=== PATIENT | female | born 1935 | race Caucasian/White ===

== ENCOUNTER 2016-06-30 08:33 | Emergency (ER) | payer MEDICARE, BC ==
[~2016-06-30] VITALS: Ht 154.9 cm; Wt 40.8 kg
[~2016-06-30 08:33] MED LIST: ASPI81TA2 PO; CARV3.122 PO; FAMO-63 PO; FLUO10CA7 PO; FURO-68 PO; FURO-69 PO; FURO20TA3 PO; GABA300C8 PO; LEVO25TA4 PO; LEVO500T8 PO; MIDO5TAB PO; SIMV10TA3 PO; TORS20TA2 PO
--- NOTE | 2016-06-30 08:41 | PHYS DOC ---
Past Medical History Past Medical History: Cancer, CHF, Endometriosis, High Cholesterol, Hypothyroid Additional Past Medical Histor: "cancer of the blood", hx chemo in remission Past Surgical History: Cholecystectomy, Hysterectomy Additional Past Surgical Histo: stephenie cath Rt chest Alcohol Use: None Drug Use: None Adult General Chief Complaint Chief Complaint: MULTIPLE TRAUMA/FALL HPI HPI Patient is a 81 year old female who presents with fall. According to the patient and her daughter and grandson she has issues with orthostatic hypotension and has been telling her she needs to wait before she stands up and starts walking. This morning she stood up out of bed and then fell backwards hitting her left arm on the rail and her thoracic back in addition to her head and neck. She presents with a 7 x 7 skin tear of her left upper arm next to her AV fistula. She is in a c-collar complaining about mild headache and neck pain down to her T4 region. I do not appreciate any ecchymosis or other abnormalities of her back. She is not complaining about any other pain other than her upper back and left arm. She states her last tetanus shot was within last 5 years. Review of Systems Review of Systems Constitutional: Denies fever or chills [] Eyes: Denies change in visual acuity, redness, or eye pain [] HENT: Denies nasal congestion or sore throat [] Respiratory: Denies cough or shortness of breath [] Cardiovascular: No additional information not addressed in HPI [] GI: Denies abdominal pain, nausea, vomiting, bloody stools or diarrhea [] : Denies dysuria or hematuria [] Musculoskeletal: Positive for neck and thoracic back pain [] Integument: Denies rash or skin lesions, positive for skin tear in the left upper arm [] Neurologic: Denies headache, focal weakness or sensory changes [] Endocrine: Denies polyuria or polydipsia [] Allergies Allergies Allergies Coded Allergies Type Severity Reaction Last Updated Verified No Known Drug Allergies 11/24/15 No Physical Exam Physical Exam Constitutional: Well developed, well nourished, no acute distress, non-toxic appearance. [] HENT: Normocephalic, atraumatic, bilateral external ears normal, oropharynx moist, no oral exudates, nose normal. [] Eyes: PERRLA, EOMI, conjunctiva normal, no discharge. [] Neck: Normal range of motion, no tenderness, supple, no stridor. [] Cardiovascular:Heart rate regular rhythm, no murmur [] Lungs & Thorax: Bilateral breath sounds clear to auscultation [] Abdomen: Bowel sounds normal, soft, no tenderness, no masses, no pulsatile masses. [] Skin: 7 by 7 cm skin tear of the left upper arm. [] Back: Tender to palpation throughout the cervical and upper thoracic back without any step-offs noted, no CVA tenderness. [] Extremities: No tenderness, no cyanosis, no clubbing, ROM intact, no edema. [] Neurologic: Alert and oriented X 3, normal motor function, normal sensory function, no focal deficits noted. [] Psychologic: Affect normal, judgement normal, mood normal. [] Current Patient Data Vital Signs Vital Signs Date Time Temp Pulse Resp B/P Pulse Ox O2 Delivery O2 Flow Rate FiO2 06/30/16 09:01 97.4 86 18 141/62 98 Room Air 97.4 EKG EKG [] Radiology/Procedures Radiology/Procedures [facility] [address] [place] [address] IMAGING REPORT Signed PATIENT: CHARANJIT MORRIS ACCOUNT: [id number] : 1935 LOCATION: ER AGE: 81 SEX: F EXAM STATUS: PRE ER ORD. PHYSICIAN: YORDAN HENSLEY MD REASON: fall with neck pain PROCEDURE: HEAD AND CERVICAL SPINE WO Indication fall. Closed head injury. Head and neck pain. The head and cervical spine were evaluated. Images of the cervical spine were reformatted in the coronal and sagittal planes. The head is compared to an examination 11/24/2015. CT head: Findings. Some slight soft tissue swelling over the left occipital bone is noted. An acute calvarial finding is not seen. Small polyp or retention cyst is noted in the right maxillary sinus. No subdural or epidural hematoma is seen. The ventricles and sulci are within normal limits given the patient's age. No mass or midline shift is seen. There is no hemorrhage. An acute finding is not apparent. A significant change compared to the previous exam is not seen CT cervical spine: Findings. The lung apices are clear. A significant soft tissue finding in the neck is not seen. Review of axial images demonstrates spondylitic changes. No acute finding is not seen. The reformatted images in the coronal and sagittal planes demonstrate similar findings. 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 No acute finding is seen. No acute finding seen in the head. PQRS Compliance Statement: One or more of the following individualized dose reduction techniques were utilized for this examination: 1. Automated exposure control 2. Adjustment of the mA and/or kV according to patient size 3. Use of iterative reconstruction technique DICTATED and SIGNED BY: BOB MENDEZ MD DATE: 06/30/16952 CC: YORDAN HENSLEY MD; UNKNOWN PCP NAME ~ [address] [id number] IMAGING REPORT Signed PATIENT: CHARANJIT MORRIS ACCOUNT: [id number] : 1935 LOCATION: ER AGE: 81 SEX: F EXAM STATUS: PRE ER ORD. PHYSICIAN: YORDAN HENSLEY MD REASON: fall today with left arm pain, large laceration on forearm PROCEDURE: HUMERUS LEFT Indication fall. Pain. AP and lateral views of the left humerus were obtained. No acute bony finding is seen. There are some modest degenerative changes about the elbow. IMPRESSION: No acute bony finding is seen DICTATED and SIGNED BY: BOB MENDEZ MD DATE: 06/30/16940 CC: YORDAN HENSLEY MD; UNKNOWN PCP NAME ~ [address] [id number] IMAGING REPORT Signed PATIENT: CHARANJIT MORRIS ACCOUNT: [id number] : 1935 LOCATION: ER AGE: 81 SEX: F EXAM STATUS: PRE ER ORD. PHYSICIAN: YORDAN HENSLEY MD REASON: fall with neck pain PROCEDURE: THORACIC SPINE WO CONTRAST Indication fall, pain. Axial images through the thoracic spine were obtained and reformatted in the coronal and sagittal planes. An acute parenchymal infiltrate or dominant soft tissue mass is not seen in the visualized lung crockett. There is a small left pleural effusion. Postoperative changes are seen in the left upper abdomen. An acute finding in the thoracic spine is not seen. A significant compression deformity in the thoracic spine is not seen on the reformatted images in no acute finding is apparent. Scoliosis is noted. IMPRESSION: No acute finding seen in the thoracic spine PQRS Compliance Statement: One or more of the following individualized dose reduction techniques were utilized for this examination: 1. Automated exposure control 2. Adjustment of the mA and/or kV according to patient size 3. Use of iterative reconstruction technique DICTATED and SIGNED BY: BOB MENDEZ MD DATE: 06/30/16 1003 CC: YORDAN HENSLEY MD; UNKNOWN PCP NAME ~ Impressions: Closed head injury Neck strain Left arm pain Laceration of her left arm Course & Med Decision Making Course & Med Decision Making Pertinent Labs and Imaging studies reviewed. (See chart for details) This is likely an orthostatic event. She's had numerous ones of these. Skin tear of the left forearm was repaired with Steri-Strips. Tetanus up-to-date. CT scan of her head neck and thoracic spine do not show any abnormalities. X-ray of the left humerus also nonacute. Patient being discharged home with return precautions. Patient, daughter and grandsons agreeable plan. Return precautions given. Dragon Disclaimer Dragon Disclaimer This electronic medical record was generated, in whole or in part, using a voice recognition dictation system. Departure Departure Impression: Primary Impression: Closed head injury Disposition: HOME, SELF-CARE Condition: GOOD Referrals: UNKNOWN PCP NAME (PCP) Patient Instructions: Back Pain, Adult Additional Instructions: The CAT scan of the head neck and back and x-rays of her arm did not show anything broken. You are being discharged home. You will be sore for the next several days. If you starte having worsening pain please return back to emergency department or follow-up with her primary care physician. YORDAN HENSLEY MD Jun 30, 2016 08:41
--- NOTE | 2016-06-30 09:47 | RAD ---
Indication fall. Pain. AP and lateral views of the left humerus were obtained. No acute bony finding is seen. There are some modest degenerative changes about the elbow. IMPRESSION: No acute bony finding is seen
--- NOTE | 2016-06-30 10:05 | RAD ---
Indication fall. Closed head injury. Head and neck pain. The head and cervical spine were evaluated. Images of the cervical spine were reformatted in the coronal and sagittal planes. The head is compared to an examination 11/24/2015. CT head: Findings. Some slight soft tissue swelling over the left occipital bone is noted. An acute calvarial finding is not seen. Small polyp or retention cyst is noted in the right maxillary sinus. No subdural or epidural hematoma is seen. The ventricles and sulci are within normal limits given the patient's age. No mass or midline shift is seen. There is no hemorrhage. An acute finding is not apparent. A significant change compared to the previous exam is not seen CT cervical spine: Findings. The lung apices are clear. A significant soft tissue finding in the neck is not seen. Review of axial images demonstrates spondylitic changes. No acute finding is not seen. The reformatted images in the coronal and sagittal planes demonstrate similar findings. 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 No acute finding is seen. No acute finding seen in the head. PQRS Compliance Statement: One or more of the following individualized dose reduction techniques were utilized for this examination: 1. Automated exposure control 2. Adjustment of the mA and/or kV according to patient size 3. Use of iterative reconstruction technique
--- NOTE | 2016-06-30 10:11 | RAD ---
Indication fall, pain. Axial images through the thoracic spine were obtained and reformatted in the coronal and sagittal planes. An acute parenchymal infiltrate or dominant soft tissue mass is not seen in the visualized lung crockett. There is a small left pleural effusion. Postoperative changes are seen in the left upper abdomen. An acute finding in the thoracic spine is not seen. A significant compression deformity in the thoracic spine is not seen on the reformatted images in no acute finding is apparent. Scoliosis is noted. IMPRESSION: No acute finding seen in the thoracic spine PQRS Compliance Statement: One or more of the following individualized dose reduction techniques were utilized for this examination: 1. Automated exposure control 2. Adjustment of the mA and/or kV according to patient size 3. Use of iterative reconstruction technique
[2016-06-30 10:41] VITALS: BP 142/61
== END 2016-06-30 10:45 | disposition home or self-care (01) ==
LOC: ER 08:33
DX: S51.812A Laceration without foreign body of left forearm, initial encounter (principal); S16.1XXA Strain of muscle, fascia and tendon at neck level, initial encounter; S09.90XA Unspecified injury of head, initial encounter; M54.6 Pain in thoracic spine; E03.9 Hypothyroidism, unspecified; E78.00 Pure hypercholesterolemia, unspecified; I50.9 Heart failure, unspecified; Z90.710 Acquired absence of both cervix and uterus; Z90.49 Acquired absence of other specified parts of digestive tract; W01.198A Fall on same level from slipping, tripping and stumbling with subsequent striking against other object, initial encounter; Y93.89 Activity, other specified; Y92.89 Other specified places as the place of occurrence of the external cause; Y99.8 Other external cause status
CPT/HCPCS: 70450; 72125; 72128; 73060; 99284-25

== ENCOUNTER 2016-10-02 18:21 | Inpatient (IN) | payer MEDICARE, BC ==
--- NOTE | 2016-10-02 19:22 | PHYS DOC ---
Past Medical History Past Medical History: Cancer, CHF, Endometriosis, High Cholesterol, Hypothyroid Additional Past Medical Histor: "cancer of the blood", hx chemo in remission Past Surgical History: Cholecystectomy, Hysterectomy Additional Past Surgical Histo: stephenie cath Rt chest, L upper arm HD fistula Alcohol Use: None Drug Use: None Adult General Chief Complaint Chief Complaint: SHORTNESS OF BREATH HPI HPI Patient is a 81 year old female who presents with complaint of left-sided chest pain and lower extremity pain and numbness. Patient states that her symptoms started while at dialysis. Patient states that she started getting sharp left-sided chest pain which has currently resolved. Patient states she also started getting numbness in her left upper extremity as well as her bilateral lower extremity is. Patient states that her left upper extremity has improved however she is still experiencing significant pain and numbness in her bilateral lower extremities. Patient has history of end-stage renal disease, congestive heart failure, and history of cancer currently in remission. Patient denies any fevers. Patient does admit to shortness of breath. The patient was sent to the emergency department from dialysis due to her symptoms. Review of Systems Review of Systems Constitutional: Denies fever or chills [] Eyes: Denies change in visual acuity, redness, or eye pain [] HENT: Denies nasal congestion or sore throat [] Respiratory: Shortness of breath, denies cough [] Cardiovascular: Chest pain, currently resolved [] GI: Denies abdominal pain, nausea, vomiting, bloody stools or diarrhea [] : Denies dysuria or hematuria [] Musculoskeletal: Denies back pain or joint pain [] Integument: Denies rash or skin lesions [] Neurologic: Numbness and pain in left upper extremity and bilateral lower extremities [] Current Medications Current Medications Current Medications Medications (Trade) Dose Ordered Sig/Sarah Start Time Stop Time Status Last Admin Dose Admin Acetaminophen/ Hydrocodone Bitart (Lortab 5/325) 1 tab PRN Q4HRS PRN 10/02/16 20:45 Ondansetron HCl (Zofran) 4 mg PRN Q8HRS PRN 10/02/16 20:45 10/03/16 20:44 Allergies Allergies Allergies Coded Allergies Type Severity Reaction Last Updated Verified No Known Drug Allergies 11/24/15 No Physical Exam Physical Exam Constitutional: Alert, afebrile, appears in chronically poor health. [] HENT: Normocephalic, atraumatic, bilateral external ears normal, oropharynx moist, no oral exudates, nose normal. [] Eyes: PERRLA, EOMI, conjunctiva normal, no discharge. [] Neck: Normal range of motion, no tenderness, supple, no stridor. [] Cardiovascular:Heart rate regular rhythm, no murmur [] Lungs & Thorax: Bilateral breath sounds clear to auscultation [] Abdomen: Bowel sounds normal, soft, no tenderness, no masses, no pulsatile masses. [] Skin: Warm, dry, no erythema, no rash. [] Back: No tenderness, no CVA tenderness. [] Extremities: No tenderness, no cyanosis, no clubbing, ROM intact, no edema. [] Neurologic: Alert and oriented X 3, normal motor function, normal sensory function, no focal deficits noted. [] Current Patient Data Vital Signs Vital Signs Date Time Temp Pulse Resp B/P Pulse Ox O2 Delivery O2 Flow Rate FiO2 10/02/16 18:21 97.7 74 32 132/66 98 Room Air 97.7 Lab Values Laboratory Tests Test 10/02/16 19:24 10/02/16 20:08 White Blood Count 7.9x10^3/uL (4.0-11.0) Red Blood Count 4.80x10^6/uL (3.50-5.40) Hemoglobin 14.6g/dL (12.0-15.5) Hematocrit 45.0% (36.0-47.0) Mean Corpuscular Volume 94fL (79-100) Mean Corpuscular Hemoglobin 31pg (25-35) Mean Corpuscular Hemoglobin Concent 33g/dL (31-37) Red Cell Distribution Width 15.3% (11.5-14.5) H Platelet Count 191x10^3/uL (140-400) Neutrophils (%) (Auto) 70% (31-73) Lymphocytes (%) (Auto) 19% (24-48) L Monocytes (%) (Auto) 9% (0-9) Eosinophils (%) (Auto) 1% (0-3) Basophils (%) (Auto) 1% (0-3) Neutrophils # (Auto) 5.5x10^3uL (1.8-7.7) Lymphocytes # (Auto) 1.5x10^3/uL (1.0-4.8) Monocytes # (Auto) 0.7x10^3/uL (0.0-1.1) Eosinophils # (Auto) 0.1x10^3/uL (0.0-0.7) Basophils # (Auto) 0.1x10^3/uL (0.0-0.2) Sodium Level 136mmol/L (136-145) Potassium Level 4.2mmol/L (3.5-5.1) Chloride Level 96mmol/L (98-107) L Carbon Dioxide Level 31mmol/L (21-32) Anion Gap 9 (6-14) Blood Urea Nitrogen 10mg/dL (7-20) Creatinine 1.2mg/dL (0.6-1.0) H Estimated GFR (Cockcroft-Gault) 43.0 BUN/Creatinine Ratio 8 (6-20) Glucose Level 84mg/dL (70-99) Lactic Acid Level 1.7mmol/L (0.4-2.0) Calcium Level 8.9mg/dL (8.5-10.1) Total Bilirubin 0.7mg/dL (0.2-1.0) Aspartate Amino Transferase (AST) 32U/L (15-37) Alanine Aminotransferase (ALT) 26U/L (14-59) Alkaline Phosphatase 153U/L (46-116) H Creatine Kinase 56U/L (26-192) Creatine Kinase MB (Mass) 2.6ng/mL (0.0-3.6) Creatine Kinase MB Relative Index 4.6% (0-4) H Troponin I Quantitative 0.046ng/mL (0.000-0.055) CM-Srd-G-Type Natriuretic Peptide 60964jq/mL (0-449) H Total Protein 8.2g/dL (6.4-8.2) Albumin 3.6g/dL (3.4-5.0) Albumin/Globulin Ratio 0.8 (1.0-1.7) L Influenza Type A Antigen Negative (NEGATIVE) Influenza Type B Antigen Negative (NEGATIVE) Laboratory Tests 10/02/16 19:24 Laboratory Tests 10/02/16 19:24 EKG EKG Interpreted by me: Heart rate 86, sinus rhythm, normal intervals, right axis deviation, no acute ST elevations or depressions, T-wave inversions in the inferior leads [] Radiology/Procedures Radiology/Procedures One view AP chest x-ray interpreted by me: Stable left pleural effusion, no new infiltrates, mild cardiomegaly [] Course & Med Decision Making Course & Med Decision Making Pertinent Labs and Imaging studies reviewed. (See chart for details) Patient's chest x-ray shows a stable left pleural effusion patient's cardiac enzymes were negative. The patient's symptoms appear to be possible exacerbation of patient's heart failure. The patient continues to complain of pain in her lower extremities and states that due to pain she is unable to walk this time. Patient thus will be admitted the hospital for further evaluation and care. I spoke with Dr. Cm who accepted care patient in hospital. Consults were placed to Dr. Gifford of cardiology and Dr. Hale of nephrology. Dragon Disclaimer Draghoracio Disclaimer This electronic medical record was generated, in whole or in part, using a voice recognition dictation system. Departure Departure Impression: Primary Impression: Chest pain Additional Impressions: CHF (congestive heart failure) End stage renal disease Lower extremity pain, bilateral Disposition: ADMITTED INPATIENT Admitting Physician: Ev Cm Condition: STABLE Referrals: NO PCP (PCP) Problem Qualifiers Primary Impression: Chest pain Chest pain type: unspecified Qualified Code: R07.9 - Chest pain, unspecified Additional Impressions: CHF (congestive heart failure) Congestive heart failure type: unspecified congestive heart failure type Congestive heart failure chronicity: unspecified congestive heart failure chronicity Qualified Code: I50.9 - Heart failure, unspecified MAL MCCULLOUGH MD Oct 02, 2016 19:22
[2016-10-02 19:34] LABS: BASO # 0.1 x10^3/uL (0.0-0.2); BASO % 1 % (0-3); EOS % 1 % (0-3); HEMOGLOBIN 14.6 g/dL (12.0-15.5); LYMPH # 1.5 x10^3/uL (1.0-4.8); LYMPH % 19 % (24-48); MEAN CORPUSCULAR HEMOGLOBIN 31 pg (25-35); MEAN CORPUSCULAR HGB CONC 33 g/dL (31-37); MEAN CORPUSCULAR VOLUME 94 fL (79-100); MONO % 9 % (0-9); NEUT % 70 % (31-73); PLATELET COUNT 191 x10^3/uL (140-400); RED CELL DISTRIBUTION WIDTH 15.3 % (11.5-14.5); WHITE BLOOD COUNT 7.9 x10^3/uL (4.0-11.0)
[2016-10-02 19:49] LABS: CALCIUM 8.9 mg/dL (8.5-10.1); CREATININE 1.2 mg/dL (0.6-1.0); POTASSIUM 4.2 mmol/L (3.5-5.1)
[2016-10-02 19:55] LABS: ALBUMIN 3.6 g/dL (3.4-5.0); ALBUMIN/GLOBULIN RATIO 0.8 (1.0-1.7); TOTAL BILIRUBIN 0.7 mg/dL (0.2-1.0); TOTAL PROTEIN 8.2 g/dL (6.4-8.2)
[2016-10-02 20:02] LABS: CKMB MASS 2.6 ng/mL (0.0-3.6)
[2016-10-02 20:32] LABS: OBC FLU VALID
[2016-10-02] MEDS ORDERED: ONDANSETRON PF 4 MG/2 ML VIAL. IV PRN (20:45)
[2016-10-02 22:32] VITALS: BP 127/62
[2016-10-02] MEDS: HYDROcodone/APAP 5/325MG 1 TAB TABLET PO PRN (23:07)
--- NOTE | 2016-10-02 23:31 | PDOC1 ---
History and Physical Date of Admission Date of Admission DATE: 10/02/16 TIME: 23:25 Identification/Chief Complaint Chief Complaint chest pain Problems: Source Source: Chart review, Patient History of Present Illness History of Present Illness Ms. Rodriguez, is a 81 year old female admit w NEW left-sided chest pain and lower extremity pain and numbness. She complains of leg pain after dialysis, most times,. Today, she had left sided acute chest pain, started while at dialysis. Pain was pressure and sharp 12/21, now almost totally resolved, She is unsure of her meds or her pharmacy, but oriented 09/15 otherwise, lives with her daughter. she feels tired and weak, Past Medical History Cardiovascular: CHF, HTN, Other Pulmonary: COPD, Other CENTRAL NERVOUS SYSTEM: Dementia GI: No pertinent hx Heme/Onc: Anemia NOS Psych: No pertinent hx Musculoskeletal: low back pain, Osteoarthritis Infectious disease: No pertinent hx Renal/: Chronic renal failure Endocrine: Hyperparathyroidism Past Surgical History Past Surgical History: Cholecystectomy, Hysterectomy Family History Family History: No Significant, Hypertension Social History Smoke: No ALCOHOL: none Drugs: None Current Problem List Problem List Problems Medical Problems: (1) Chest pain Status: Acute (2) CHF (congestive heart failure) Status: Acute (3) End stage renal disease Status: Acute (4) Lower extremity pain, bilateral Status: Acute Problems: Current Medications Current Medications Current Medications Ondansetron HCl (Zofran) 4 mg PRN Q8HRS PRN IV NAUSEA/VOMITING; Start 10/02/16 at 20:45; Stop 10/03/16 at 20:44 Acetaminophen/ Hydrocodone Bitart (Lortab 5/325) 1 tab PRN Q4HRS PRN PO PAIN Last administered on 10/02/16t 23:07; Start 10/02/16 at 20:45 Active Scripts Active Reported Pepcid (Famotidine) 20 Mg Tablet 20 Mg PO QODAY Aspirin 81 Mg Tab.chew 1 Tab PO DAILY Midodrine Hcl 5 Mg Tablet Unknown Dose PO Fluoxetine Hcl 10 Mg Capsule Unknown Dose PO DAILY Simvastatin 10 Mg Tablet 1 Tab PO QHS Carvedilol 3.125 Mg Tablet 1 Tab PO BID94 Levothyroxine Sodium 25 Mcg Tablet 1 Tab PO DAILY Gabapentin 300 Mg Capsule 300 Mg PO DAILY Allergies Allergies: Coded Allergies: No Known Drug Allergies (Unverified , 11/24/15) ROS General: YES: Fatigue, Malaise, No: Appetite, Chills, Night Sweats, Other PSYCHOLOGICAL ROS: No: Anxiety, Behavioral Disorder, Concentration difficultie , Decreased libido, Depression, Disorientation, Hallucinations, Hostility, Irritablity, Memory difficulties, Mood Swings, Obsessive thoughts, Other, Physical abuse, Sexual abuse, Sleep disturbances, Suicidal ideation Eyes: No Blurry vision, No Decreased vision, No Double vision, No Dry eyes, No Excessive tearing, No Eye Pain, No Itchy Eyes, No Loss of vision, No Other, No Photophobia, No Scotomata, No Uses contacts, No Uses glasses HEENT: No: Epistaxis, Heacaches, Hearing change, Nasal congestion, Nasal discharge, Oral lesions, Other, Sinus pain, Sneezing, Snoring, Sore Throat, Tinnitus, Vertigo, Visual Changes, Vocal changes Cardiovascular: yes Chest Pain (at dialysis), No Edema, No Lt Headedness, No Orthopnea, No Other, No Palpitations, No Paroxysmal Noc. Dyspnea Gastrointestinal: Yes Nausea, No Abdominal Pain, No Constipation, No Diarrhea, No Hematochezia, No Melena, No Other, No Vomiting Musculoskeletal: Yes Joint Pain, Yes Muscle Pain, Yes Muscular Weakness (leg) Neurological: No Behavorial Changes, No Bowel/Bladder ControlChng, No Confusion , No Dizziness, No Gait Disturbance, No Headaches, No Impaired Coord/balance, No Memory Loss, No Numbness/Tingling, No Other, No Seizures, No Speech Problems , No Tremors, No Visual Changes, No Weakness Skin: No Acne, No Dry Skin, No Eczema, No Hair Changes, No Lumps, No Mole Changes, No Mottling, No Nail Changes, No Other, No Pruritus, No Rash, No Skin Lesion Changes Physical Exam General: Alert, Oriented X3, Cooperative, No acute distress, Other (cannot recall her meds, ) HEENT: Atraumatic, PERRLA Lungs: Clear to auscultation Abdomen: Normal bowel sounds, Soft Extremities: No clubbing, No edema, Normal pulses Skin: No rashes, No significant lesion Neuro: Normal gait, Normal speech, Normal tone, Sensation intact, Reflexes 2+, Other (weak) Psych/Mental Status: Mood NL Vitals Vitals Vital Signs Date Time Temp Pulse Resp B/P Pulse Ox O2 Delivery O2 Flow Rate FiO2 10/02/16 23:07 Room Air 10/02/16 22:32 97.7 79 16 127/62 98 97.7 Labs Labs Laboratory Tests Test 10/02/16 19:24 10/02/16 20:08 White Blood Count 7.9x10^3/uL (4.0-11.0) Red Blood Count 4.80x10^6/uL (3.50-5.40) Hemoglobin 14.6g/dL (12.0-15.5) Hematocrit 45.0% (36.0-47.0) Mean Corpuscular Volume 94fL (79-100) Mean Corpuscular Hemoglobin 31pg (25-35) Mean Corpuscular Hemoglobin Concent 33g/dL (31-37) Red Cell Distribution Width 15.3% (11.5-14.5) Platelet Count 191x10^3/uL (140-400) Neutrophils (%) (Auto) 70% (31-73) Lymphocytes (%) (Auto) 19% (24-48) Monocytes (%) (Auto) 9% (0-9) Eosinophils (%) (Auto) 1% (0-3) Basophils (%) (Auto) 1% (0-3) Neutrophils # (Auto) 5.5x10^3uL (1.8-7.7) Lymphocytes # (Auto) 1.5x10^3/uL (1.0-4.8) Monocytes # (Auto) 0.7x10^3/uL (0.0-1.1) Eosinophils # (Auto) 0.1x10^3/uL (0.0-0.7) Basophils # (Auto) 0.1x10^3/uL (0.0-0.2) Sodium Level 136mmol/L (136-145) Potassium Level 4.2mmol/L (3.5-5.1) Chloride Level 96mmol/L (98-107) Carbon Dioxide Level 31mmol/L (21-32) Anion Gap 9 (6-14) Blood Urea Nitrogen 10mg/dL (7-20) Creatinine 1.2mg/dL (0.6-1.0) Estimated GFR (Cockcroft-Gault) 43.0 BUN/Creatinine Ratio 8 (6-20) Glucose Level 84mg/dL (70-99) Lactic Acid Level 1.7mmol/L (0.4-2.0) Calcium Level 8.9mg/dL (8.5-10.1) Total Bilirubin 0.7mg/dL (0.2-1.0) Aspartate Amino Transf (AST/SGOT) 32U/L (15-37) Alanine Aminotransferase (ALT/SGPT) 26U/L (14-59) Alkaline Phosphatase 153U/L (46-116) Creatine Kinase 56U/L (26-192) Creatine Kinase MB (Mass) 2.6ng/mL (0.0-3.6) Creatine Kinase MB Relative Index 4.6% (0-4) Troponin I Quantitative 0.046ng/mL (0.000-0.055) EX-Snh-U-Type Natriuretic Peptide 05776ls/mL (0-449) Total Protein 8.2g/dL (6.4-8.2) Albumin 3.6g/dL (3.4-5.0) Albumin/Globulin Ratio 0.8 (1.0-1.7) Influenza Type A Antigen Negative (NEGATIVE) Influenza Type B Antigen Negative (NEGATIVE) Laboratory Tests Test 10/02/16 19:24 10/02/16 20:08 White Blood Count 7.9x10^3/uL (4.0-11.0) Red Blood Count 4.80x10^6/uL (3.50-5.40) Hemoglobin 14.6g/dL (12.0-15.5) Hematocrit 45.0% (36.0-47.0) Mean Corpuscular Volume 94fL (79-100) Mean Corpuscular Hemoglobin 31pg (25-35) Mean Corpuscular Hemoglobin Concent 33g/dL (31-37) Red Cell Distribution Width 15.3% (11.5-14.5) Platelet Count 191x10^3/uL (140-400) Neutrophils (%) (Auto) 70% (31-73) Lymphocytes (%) (Auto) 19% (24-48) Monocytes (%) (Auto) 9% (0-9) Eosinophils (%) (Auto) 1% (0-3) Basophils (%) (Auto) 1% (0-3) Neutrophils # (Auto) 5.5x10^3uL (1.8-7.7) Lymphocytes # (Auto) 1.5x10^3/uL (1.0-4.8) Monocytes # (Auto) 0.7x10^3/uL (0.0-1.1) Eosinophils # (Auto) 0.1x10^3/uL (0.0-0.7) Basophils # (Auto) 0.1x10^3/uL (0.0-0.2) Sodium Level 136mmol/L (136-145) Potassium Level 4.2mmol/L (3.5-5.1) Chloride Level 96mmol/L (98-107) Carbon Dioxide Level 31mmol/L (21-32) Anion Gap 9 (6-14) Blood Urea Nitrogen 10mg/dL (7-20) Creatinine 1.2mg/dL (0.6-1.0) Estimated GFR (Cockcroft-Gault) 43.0 BUN/Creatinine Ratio 8 (6-20) Glucose Level 84mg/dL (70-99) Lactic Acid Level 1.7mmol/L (0.4-2.0) Calcium Level 8.9mg/dL (8.5-10.1) Total Bilirubin 0.7mg/dL (0.2-1.0) Aspartate Amino Transf (AST/SGOT) 32U/L (15-37) Alanine Aminotransferase (ALT/SGPT) 26U/L (14-59) Alkaline Phosphatase 153U/L (46-116) Creatine Kinase 56U/L (26-192) Creatine Kinase MB (Mass) 2.6ng/mL (0.0-3.6) Creatine Kinase MB Relative Index 4.6% (0-4) Troponin I Quantitative 0.046ng/mL (0.000-0.055) BK-Jrs-Y-Type Natriuretic Peptide 28520yq/mL (0-449) Total Protein 8.2g/dL (6.4-8.2) Albumin 3.6g/dL (3.4-5.0) Albumin/Globulin Ratio 0.8 (1.0-1.7) Influenza Type A Antigen Negative (NEGATIVE) Influenza Type B Antigen Negative (NEGATIVE) VTE Prophylaxis Ordered VTE Prophylaxis Devices: Yes VTE Pharmacological Prophylaxi: No Assessment/Plan Assessment/Plan chest pain at HD ESRD angina, CV consult to det. stablity chronic diastolic CHF hyperlipids weakness and debility, acq. appearance of malnutrition by BMI and poor str. normal serum albumin, consult nutrition, prior blood cancer? she reports stomach cancer, and has seen Dr. 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
[2016-10-02 23:50] VITALS: BP 122/59
[2016-10-03 03:50] VITALS: BP 107/53
[2016-10-03 05:27] LABS: BASO % 1 % (0-3); CREATININE 1.6 mg/dL (0.6-1.0); EOS % 2 % (0-3); GFR 30.9; HEMATOCRIT 37.6 % (36.0-47.0); HEMOGLOBIN 12.1 g/dL (12.0-15.5); LYMPH # 1.3 x10^3/uL (1.0-4.8); LYMPH % 19 % (24-48); MEAN CORPUSCULAR HEMOGLOBIN 31 pg (25-35); MEAN CORPUSCULAR HGB CONC 32 g/dL (31-37); MEAN CORPUSCULAR VOLUME 95 fL (79-100); MONO % 13 % (0-9); NEUT % 66 % (31-73); PLATELET COUNT 156 x10^3/uL (140-400); POTASSIUM 4.1 mmol/L (3.5-5.1); RED BLOOD COUNT 3.96 x10^6/uL (3.50-5.40); WHITE BLOOD COUNT 6.8 x10^3/uL (4.0-11.0)
[2016-10-03] MEDS: HYDROcodone/APAP 5/325MG 1 TAB TABLET PO PRN (05:37)
--- NOTE | 2016-10-03 06:10 | EKG ---
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
[2016-10-03 07:00] VITALS: BP 108/56
--- NOTE | 2016-10-03 08:17 | PDOC2 ---
CARDIAC CONSULT DATE OF CONSULT Date of Consult DATE: 10/03/16 TIME: 07:58 REASON FOR CONSULT Reason for Consult: Chest pain REFERRING PHYSICIAN Referring Physician: Charmaine SOURCE Source: Chart review, Patient HISTORY OF PRESENT ILLNESS HISTORY OF PRESENT ILLNESS This is a pleasant 81 yo female admitted for complains of chest pain. Reports that she was having dialysis yesterday and 15 minutes prior to her finishing with her dialysis. She had intermittent sharp left chest pain 2-3 minutes at a time which dissipated after dialysis. Verbalized that at times during dialysis , this is the period in which she does get left hand pain and bilateral LE numbness and also occasional CP. She did have an episode of SOA yesterday but lasted for only a minute and went away. 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 NO further symptoms overnight. Denies any nausea, diaphoresis, nor palpitations. She has been noted with cardiomyopathy last yr with EF of 25% and was encouraged for outpt MPI but she did not follow up with us nor [facility]. She has been deemed DNR/DNI last yr as well and to date she does not want any invasive procedures. When she is ready to then she is ready to she said. Currently she is comfortable with good appetite. No known hx of CAD, VTE, CVA. PAST MEDICAL HISTORY Past Medical History Cardiovascular: CHF, HTN, cardiomyopathy with LVEF ~ 25% Pulmonary: COPD, pleural effusion with thoracentesis CENTRAL NERVOUS SYSTEM: Dementia GI: No pertinent hx Heme/Onc: Leukemia with chemotherapy- in remission Musculoskeletal: Osteoarthritis, fall, likely osteoporosis Infectious disease: No pertinent hx Renal/: Chronic renal failure (with HD) PAST SURGICAL HISTORY Past Surgical History Cholecystectomy, Hysterectomy (Port-A-Cath), dialysis cath placement, LUE dialysis fistula FAMILY HISTORY Family History: Hypertension SOCIAL HISTORY Smoke: <1 pack per day ALCOHOL: none Drugs: None Lives: with Family CURRENT MEDICATIONS CURRENT MEDICATIONS Current Medications Medications (Trade) Dose Ordered Sig/Sarah Route PRN Reason Start Time Stop Time Status Last Admin Dose Admin Acetaminophen/ Hydrocodone Bitart (Lortab 5/325) 1 tab PRN Q4HRS PRN PO PAIN 10/02/16 20:45 10/03/16 05:37 ALLERGIES ALLERGIES: Coded Allergies: No Known Drug Allergies (Unverified , 11/24/15) ROS Review of System 14 point ROS evaluated with pertinent positives noted per HPI PHYSICAL EXAM General: Alert, Oriented X3, Cooperative Heart: Regular rate (SR), Normal S1, Normal S2 Abdomen: Soft, No tenderness Extremities: No cyanosis, No edema Skin: No breakdown, No significant lesion Neuro: Normal speech, Sensation intact Psych/Mental Status: Mental status NL, Mood NL MUSCULOSKELETAL: Osteoarthritic changes both hands VITALS VITALS Vital Signs Date Time Temp Pulse Resp B/P Pulse Ox O2 Delivery O2 Flow Rate FiO2 10/03/16 06:37 Room Air 10/03/16 03:50 98.3 67 14 107/53 96 98.3 LABS Lab: Laboratory Tests Test 10/02/16 19:24 10/02/16 20:08 10/03/16 02:50 White Blood Count 7.9x10^3/uL (4.0-11.0) 6.8x10^3/uL (4.0-11.0) Red Blood Count 4.80x10^6/uL (3.50-5.40) 3.96x10^6/uL (3.50-5.40) Hemoglobin 14.6g/dL (12.0-15.5) 12.1g/dL (12.0-15.5) Hematocrit 45.0% (36.0-47.0) 37.6% (36.0-47.0) Mean Corpuscular Volume 94fL (79-100) 95fL (79-100) Mean Corpuscular Hemoglobin 31pg (25-35) 31pg (25-35) Mean Corpuscular Hemoglobin Concent 33g/dL (31-37) 32g/dL (31-37) Red Cell Distribution Width 15.3% (11.5-14.5) 15.0% (11.5-14.5) Platelet Count 191x10^3/uL (140-400) 156x10^3/uL (140-400) Neutrophils (%) (Auto) 70% (31-73) 66% (31-73) Lymphocytes (%) (Auto) 19% (24-48) 19% (24-48) Monocytes (%) (Auto) 9% (0-9) 13% (0-9) Eosinophils (%) (Auto) 1% (0-3) 2% (0-3) Basophils (%) (Auto) 1% (0-3) 1% (0-3) Neutrophils # (Auto) 5.5x10^3uL (1.8-7.7) 4.5x10^3uL (1.8-7.7) Lymphocytes # (Auto) 1.5x10^3/uL (1.0-4.8) 1.3x10^3/uL (1.0-4.8) Monocytes # (Auto) 0.7x10^3/uL (0.0-1.1) 0.9x10^3/uL (0.0-1.1) Eosinophils # (Auto) 0.1x10^3/uL (0.0-0.7) 0.1x10^3/uL (0.0-0.7) Basophils # (Auto) 0.1x10^3/uL (0.0-0.2) 0.0x10^3/uL (0.0-0.2) Sodium Level 136mmol/L (136-145) 139mmol/L (136-145) Potassium Level 4.2mmol/L (3.5-5.1) 4.1mmol/L (3.5-5.1) Chloride Level 96mmol/L (98-107) 102mmol/L (98-107) Carbon Dioxide Level 31mmol/L (21-32) 31mmol/L (21-32) Anion Gap 9 (6-14) 6 (6-14) Blood Urea Nitrogen 10mg/dL (7-20) 16mg/dL (7-20) Creatinine 1.2mg/dL (0.6-1.0) 1.6mg/dL (0.6-1.0) Estimated GFR (Cockcroft-Gault) 43.0 30.9 BUN/Creatinine Ratio 8 (6-20) Glucose Level 84mg/dL (70-99) 95mg/dL (70-99) Lactic Acid Level 1.7mmol/L (0.4-2.0) Calcium Level 8.9mg/dL (8.5-10.1) 8.0mg/dL (8.5-10.1) Total Bilirubin 0.7mg/dL (0.2-1.0) Aspartate Amino Transf (AST/SGOT) 32U/L (15-37) Alanine Aminotransferase (ALT/SGPT) 26U/L (14-59) Alkaline Phosphatase 153U/L (46-116) Creatine Kinase 56U/L (26-192) Creatine Kinase MB (Mass) 2.6ng/mL (0.0-3.6) Creatine Kinase MB Relative Index 4.6% (0-4) Troponin I Quantitative 0.046ng/mL (0.000-0.055) 0.042ng/mL (0.000-0.055) QA-Jxb-Z-Type Natriuretic Peptide 92440qw/mL (0-449) Total Protein 8.2g/dL (6.4-8.2) Albumin 3.6g/dL (3.4-5.0) Albumin/Globulin Ratio 0.8 (1.0-1.7) Influenza Type A Antigen Negative (NEGATIVE) Influenza Type B Antigen Negative (NEGATIVE) ECHOCARDIOGRAM ECHOCARDIOGRAM <Conclusion> The Ejection Fraction is 20-25%. There is severe global hypokinesis of the left ventricle. Tissue Doppler imaging reveals moderate left ventricular diastolic dysfunction. There is moderate left pleural effusion. No significant valvular disease. DATE: 04/27/16 7975 ASSESSMENT/PLAN ASSESSMENT/PLAN 1. Atypical chest pain: troponin series normal, EKG SR, inferior lead with asymmetrical twave inversion otherwise no significant changes. Symptom brief only occurred during dialysis session. Likely MSK 2. Cardiomyopathy: EF 20-25% NYHA2-3. Possible chemo related. 3. Chronic systolic CHF: compensated 4. HTN/HLP: controlled 5. COPD: compensated 6. ESRD/HD 7. Hx of leukemia: chemotherapy 3 yrs ago, in remission 8. Dementia/deconditioning/frailty 9. Orthostasis? vs hypotension induced by dialysis on midodrine on med list 10. Hypothyroidism: TSH on goal. Recommendations 1. Discussed significantly regarding treatment option and does not want to pursue and invasvie procedures and wants medical treatment. 2. In prior admission she has been noted with DNR/DNI, Ankita and Aj --DPOA' s (children) 3. MPI outpt was recommend on past admission but did not pursue since she does not want any invasive procedures. 4. Continue with optimization as tolerated. If pt remains here tomorrow then will proceed with TTE 5. Otherwise OK to DC to home and encouraged to follow up in our office in 2-3 weeks and will obtain TTE at that time. 6. Continue with fluid off loading via HD. 7. Continue with home medlist. Problems: JA RUSSO APRN Oct 03, 2016 08:16
--- NOTE | 2016-10-03 08:36 | RAD ---
AP portable chest radiograph 10/02/2016 Clinical History: Chest pain and shortness of breath. An AP portable erect digital radiograph of the chest was obtained. Comparison study is dated 09/07/2016. The patient is rotated to the left slightly. The right internal jugular Eqzsyp-r-Ohnj type catheter is unchanged position. Surgical clips overlie the left upper quadrant of the abdomen, unchanged. The cardiac silhouette is mildly enlarged. Atherosclerotic cascades of the thoracic aorta is seen. The thoracic aorta is mildly tortuous. There is a small left pleural effusion. Left lower lobe atelectasis and/or infiltrate is seen. These findings are not significantly changed. Prominence of the pulmonary vasculature is noted. There is evidence of interstitial pulmonary edema. These findings are consistent with CHF. This appears increased slightly. No pneumothorax is seen. The osseous structures are unchanged. Impression: Findings consistent with CHF.
[2016-10-03 08:37] LABS: CHOLESTEROL/HDL RATIO 2.3
--- NOTE | 2016-10-03 10:54 | ACF ---
Admit Criteria Forms Admit Criteria Forms Admit Criteria Forms HEART FAILURE: COMMON COMPLICATIONS Clinical Indications for Inpatient Care (Place 'X' for any and all applicable criteria): Ongoing inpatient care may be indicated for heart failure with ANY ONE of the following (1)(2)(3)(4)(5): [ ]I. Ongoing need for care for primary condition requiring frequent therapy adjustments because of changes in cardiac function (eg, drug dosage changes for drugs that are renally metabolized) [ ]II. New-onset heart failure [ ]III. Heart failure with decreased urine output not responsive to attempts to optimize volume status [ ]IV. Acute cardiac ischemia causing or associated with failure [X]V. Complications of heart failure, including ANY ONE of the following: [ ]a) Pericardial effusion [ ]b) Symptomatic pleural effusion [ ]c) O2 saturation <90% or PO2 < 60 mm Hg (8.0 kPa) on room air or require baseline supplemental O2 [ ]d) Tachypnea [X]e) Dyspnea [ ]f) Syncope [ ]g) Change in mental status [ ]h) Acute renal insufficiency that is severe (reduction of more than 50% in estimated glomerular filtration rate from baseline) or progressive reduction of more than 25% in estimated glomerular filtration rate from baseline, with creatinine continuing to rise) [ ]i) Hemodynamic instability [ ]j) Anasarca [ ]k) Clinically significant metabolic abnormalities due to heart failure (eg, new-onset metabolic acidosis) Extended stay beyond goal length of stay for primary condition may be needed until ALL of the following are present(1)(3): [ ]a) Stable and effective diuretic regimen established (or patient on stable dialysis regimen if in chronic renal failure) [ ]b) Breathing comfortably at rest [ ]c) Saturation of arterial oxygen greater than 90% or at acceptable baseline [ ]d) Pulmonary edema absent or improved [ ]e) Hemodynamic stability [ ]f) Volume status acceptable on oral medication [ ]g) Peripheral or sacral edema absent or improved [ ]h) Renal function stable and manageable at a lower level of care [ ]i) Complications (eg, pleural effusion) resolved or manageable at a lower level of care [ ]j) Patient or caregiver has received written discharge instructions or educational material addressing activity level, diet, discharge medications, follow-up appointment, weight monitoring, and what to do if symptoms worsen The original [employer] content created by [employer] has been revised. The portions of the content which have been revised are identified through the use of italic text or in bold, and [facility] has neither reviewed nor approved the modified material.All other unmodified content is copyright [facility]. Please see references footnoted in the original [facility] [employer] edition 2016 DORON GONZALEZ Oct 03, 2016 10:54
[2016-10-03 11:30] VITALS: BP 105/51
--- NOTE | 2016-10-03 11:47 | PDOC2 ---
CONSULT Date of Consult Date of Consult DATE: 10/03/16 TIME: 11:44 Reason for Consult Reason for Consult: ESRD Referring Physician Referring Physician: JOSE Identification/Chief Complaint Chief Complaint CHEST PAIN Source Source: Chart review, Patient History of Present Illness Reason for Visit: THIS IS AN 81 YR OLD WITH CHEST PAIN AND CRAMPING. SHE HAS ESRD AND IS ON OP HD ON MWF. SHE WENT TO HD YESTERDAY AND TOWARDS THE END SHE HAD THESE SYMPTOMS. NO SOB. CARDIOLOGY EVALUATION IS ONGOING AT THIS TIME Past Medical History Cardiovascular: CHF, HTN, Other Pulmonary: COPD, Other CENTRAL NERVOUS SYSTEM: Dementia GI: No pertinent hx Heme/Onc: Anemia NOS Psych: No pertinent hx Musculoskeletal: low back pain, Osteoarthritis Infectious disease: No pertinent hx Renal/: Chronic renal failure Endocrine: Hyperparathyroidism Past Surgical History Past Surgical History: Cholecystectomy, Hysterectomy Family History Family History: Hypertension Social History <1 pack per day ALCOHOL: none Drugs: None Lives: with Family Current Problem List Problem List Problems Medical Problems: (1) Chest pain Status: Acute (2) CHF (congestive heart failure) Status: Acute (3) End stage renal disease Status: Acute (4) Lower extremity pain, bilateral Status: Acute Current Medications Current Medications Current Medications Ondansetron HCl (Zofran) 4 mg PRN Q8HRS PRN IV NAUSEA/VOMITING; Start 10/02/16 at 20:45; Stop 10/03/16 at 20:44 Acetaminophen/ Hydrocodone Bitart (Lortab 5/325) 1 tab PRN Q4HRS PRN PO PAIN Last administered on 10/03/16t 05:37; Start 10/02/16 at 20:45 Active Scripts Active Reported Pepcid (Famotidine) 20 Mg Tablet 20 Mg PO QODAY Aspirin 81 Mg Tab.chew 1 Tab PO DAILY Midodrine Hcl 5 Mg Tablet Unknown Dose PO Fluoxetine Hcl 10 Mg Capsule Unknown Dose PO DAILY Simvastatin 10 Mg Tablet 1 Tab PO QHS Carvedilol 3.125 Mg Tablet 1 Tab PO BID94 Levothyroxine Sodium 25 Mcg Tablet 1 Tab PO DAILY Gabapentin 300 Mg Capsule 300 Mg PO DAILY Allergies Allergies: Coded Allergies: No Known Drug Allergies (Unverified , 11/24/15) ROS General: YES: Appetite, Malaise PSYCHOLOGICAL ROS: YES: Anxiety Eyes: Yes Decreased vision HEENT: YES: Heacaches Respiratory: YES: Cough Genitourinary: YES Other (ANURIA) Musculoskeletal: Yes Muscular Weakness Neurological: Yes Weakness Skin: Yes Dry Skin Physical Exam General: Alert, Oriented X3, Cooperative, No acute distress HEENT: Atraumatic, PERRLA Lungs: Clear to auscultation, Normal air movement Heart: Regular rate, Normal S1, Normal S2 Abdomen: Normal bowel sounds, No tenderness Skin: No breakdown Neuro: Normal speech, Cranial nerves 3-12 NL Psych/Mental Status: Mental status NL, Mood NL MUSCULOSKELETAL: No deformity Vitals VITALS Vital Signs Date Time Temp Pulse Resp B/P Pulse Ox O2 Delivery O2 Flow Rate FiO2 10/03/16 08:00 Room Air 10/03/16 07:00 98.7 73 18 108/56 96 98.7 Labs Labs Laboratory Tests Test 10/02/16 19:24 10/02/16 20:08 10/03/16 02:50 10/03/16 08:36 White Blood Count 7.9x10^3/uL (4.0-11.0) 6.8x10^3/uL (4.0-11.0) Red Blood Count 4.80x10^6/uL (3.50-5.40) 3.96x10^6/uL (3.50-5.40) Hemoglobin 14.6g/dL (12.0-15.5) 12.1g/dL (12.0-15.5) Hematocrit 45.0% (36.0-47.0) 37.6% (36.0-47.0) Mean Corpuscular Volume 94fL (79-100) 95fL (79-100) Mean Corpuscular Hemoglobin 31pg (25-35) 31pg (25-35) Mean Corpuscular Hemoglobin Concent 33g/dL (31-37) 32g/dL (31-37) Red Cell Distribution Width 15.3% (11.5-14.5) 15.0% (11.5-14.5) Platelet Count 191x10^3/uL (140-400) 156x10^3/uL (140-400) Neutrophils (%) (Auto) 70% (31-73) 66% (31-73) Lymphocytes (%) (Auto) 19% (24-48) 19% (24-48) Monocytes (%) (Auto) 9% (0-9) 13% (0-9) Eosinophils (%) (Auto) 1% (0-3) 2% (0-3) Basophils (%) (Auto) 1% (0-3) 1% (0-3) Neutrophils # (Auto) 5.5x10^3uL (1.8-7.7) 4.5x10^3uL (1.8-7.7) Lymphocytes # (Auto) 1.5x10^3/uL (1.0-4.8) 1.3x10^3/uL (1.0-4.8) Monocytes # (Auto) 0.7x10^3/uL (0.0-1.1) 0.9x10^3/uL (0.0-1.1) Eosinophils # (Auto) 0.1x10^3/uL (0.0-0.7) 0.1x10^3/uL (0.0-0.7) Basophils # (Auto) 0.1x10^3/uL (0.0-0.2) 0.0x10^3/uL (0.0-0.2) Sodium Level 136mmol/L (136-145) 139mmol/L (136-145) Potassium Level 4.2mmol/L (3.5-5.1) 4.1mmol/L (3.5-5.1) Chloride Level 96mmol/L (98-107) 102mmol/L (98-107) Carbon Dioxide Level 31mmol/L (21-32) 31mmol/L (21-32) Anion Gap 9 (6-14) 6 (6-14) Blood Urea Nitrogen 10mg/dL (7-20) 16mg/dL (7-20) Creatinine 1.2mg/dL (0.6-1.0) 1.6mg/dL (0.6-1.0) Estimated GFR (Cockcroft-Gault) 43.0 30.9 BUN/Creatinine Ratio 8 (6-20) Glucose Level 84mg/dL (70-99) 95mg/dL (70-99) Lactic Acid Level 1.7mmol/L (0.4-2.0) Calcium Level 8.9mg/dL (8.5-10.1) 8.0mg/dL (8.5-10.1) Total Bilirubin 0.7mg/dL (0.2-1.0) Aspartate Amino Transf (AST/SGOT) 32U/L (15-37) Alanine Aminotransferase (ALT/SGPT) 26U/L (14-59) Alkaline Phosphatase 153U/L (46-116) Creatine Kinase 56U/L (26-192) Creatine Kinase MB (Mass) 2.6ng/mL (0.0-3.6) Creatine Kinase MB Relative Index 4.6% (0-4) Troponin I Quantitative 0.046ng/mL (0.000-0.055) 0.042ng/mL (0.000-0.055) 0.035ng/mL (0.000-0.055) YC-Vgq-V-Type Natriuretic Peptide 89783up/mL (0-449) Total Protein 8.2g/dL (6.4-8.2) Albumin 3.6g/dL (3.4-5.0) Albumin/Globulin Ratio 0.8 (1.0-1.7) Influenza Type A Antigen Negative (NEGATIVE) Influenza Type B Antigen Negative (NEGATIVE) Magnesium Level 2.0mg/dL (1.8-2.4) Triglycerides Level 52mg/dL (0-150) Cholesterol Level 135mg/dL (0-200) LDL Cholesterol, Calculated 66mg/dL (0-100) VLDL Cholesterol, Calculated 10mg/dL (0-40) Non-HDL Cholesterol Calculated 76mg/dL (0-129) HDL Cholesterol 59mg/dL (40-60) Cholesterol/HDL Ratio 2.3 Thyroid Stimulating Hormone (TSH) 1.534uIU/mL (0.358-3.74) Laboratory Tests Test 10/02/16 19:24 10/02/16 20:08 10/03/16 02:50 10/03/16 08:36 White Blood Count 7.9x10^3/uL (4.0-11.0) 6.8x10^3/uL (4.0-11.0) Red Blood Count 4.80x10^6/uL (3.50-5.40) 3.96x10^6/uL (3.50-5.40) Hemoglobin 14.6g/dL (12.0-15.5) 12.1g/dL (12.0-15.5) Hematocrit 45.0% (36.0-47.0) 37.6% (36.0-47.0) Mean Corpuscular Volume 94fL (79-100) 95fL (79-100) Mean Corpuscular Hemoglobin 31pg (25-35) 31pg (25-35) Mean Corpuscular Hemoglobin Concent 33g/dL (31-37) 32g/dL (31-37) Red Cell Distribution Width 15.3% (11.5-14.5) 15.0% (11.5-14.5) Platelet Count 191x10^3/uL (140-400) 156x10^3/uL (140-400) Neutrophils (%) (Auto) 70% (31-73) 66% (31-73) Lymphocytes (%) (Auto) 19% (24-48) 19% (24-48) Monocytes (%) (Auto) 9% (0-9) 13% (0-9) Eosinophils (%) (Auto) 1% (0-3) 2% (0-3) Basophils (%) (Auto) 1% (0-3) 1% (0-3) Neutrophils # (Auto) 5.5x10^3uL (1.8-7.7) 4.5x10^3uL (1.8-7.7) Lymphocytes # (Auto) 1.5x10^3/uL (1.0-4.8) 1.3x10^3/uL (1.0-4.8) Monocytes # (Auto) 0.7x10^3/uL (0.0-1.1) 0.9x10^3/uL (0.0-1.1) Eosinophils # (Auto) 0.1x10^3/uL (0.0-0.7) 0.1x10^3/uL (0.0-0.7) Basophils # (Auto) 0.1x10^3/uL (0.0-0.2) 0.0x10^3/uL (0.0-0.2) Sodium Level 136mmol/L (136-145) 139mmol/L (136-145) Potassium Level 4.2mmol/L (3.5-5.1) 4.1mmol/L (3.5-5.1) Chloride Level 96mmol/L (98-107) 102mmol/L (98-107) Carbon Dioxide Level 31mmol/L (21-32) 31mmol/L (21-32) Anion Gap 9 (6-14) 6 (6-14) Blood Urea Nitrogen 10mg/dL (7-20) 16mg/dL (7-20) Creatinine 1.2mg/dL (0.6-1.0) 1.6mg/dL (0.6-1.0) Estimated GFR (Cockcroft-Gault) 43.0 30.9 BUN/Creatinine Ratio 8 (6-20) Glucose Level 84mg/dL (70-99) 95mg/dL (70-99) Lactic Acid Level 1.7mmol/L (0.4-2.0) Calcium Level 8.9mg/dL (8.5-10.1) 8.0mg/dL (8.5-10.1) Total Bilirubin 0.7mg/dL (0.2-1.0) Aspartate Amino Transf (AST/SGOT) 32U/L (15-37) Alanine Aminotransferase (ALT/SGPT) 26U/L (14-59) Alkaline Phosphatase 153U/L (46-116) Creatine Kinase 56U/L (26-192) Creatine Kinase MB (Mass) 2.6ng/mL (0.0-3.6) Creatine Kinase MB Relative Index 4.6% (0-4) Troponin I Quantitative 0.046ng/mL (0.000-0.055) 0.042ng/mL (0.000-0.055) 0.035ng/mL (0.000-0.055) IX-Xzr-T-Type Natriuretic Peptide 88975nl/mL (0-449) Total Protein 8.2g/dL (6.4-8.2) Albumin 3.6g/dL (3.4-5.0) Albumin/Globulin Ratio 0.8 (1.0-1.7) Influenza Type A Antigen Negative (NEGATIVE) Influenza Type B Antigen Negative (NEGATIVE) Magnesium Level 2.0mg/dL (1.8-2.4) Triglycerides Level 52mg/dL (0-150) Cholesterol Level 135mg/dL (0-200) LDL Cholesterol, Calculated 66mg/dL (0-100) VLDL Cholesterol, Calculated 10mg/dL (0-40) Non-HDL Cholesterol Calculated 76mg/dL (0-129) HDL Cholesterol 59mg/dL (40-60) Cholesterol/HDL Ratio 2.3 Thyroid Stimulating Hormone (TSH) 1.534uIU/mL (0.358-3.74) Assessment/Plan Assessment/Plan IMP CHEST PAIN ANEMIA ESRD PLAN HD MWF CARDIOLOGY EVAL WILL FOLLOW D/W CARDIOLOGY VERÓNICA BERGERON MD Oct 03, 2016 11:47
--- NOTE | 2016-10-03 12:30 | EKG ---
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
--- NOTE | 2016-10-03 12:53 | PDOC3 ---
Discharge Summary [facility] Date of Admission: Oct 02, 2016 Discharge Date: Oct 03, 2016 Admitting Diagnosis 1. Atypical chest pain:related to HD vs. muscular pain 2. Cardiomyopathy: EF 20-25% NYHA2-3. Possible chemo related. 3. Chronic systolic CHF: compensated 4. HTN/HLP: controlled 5. COPD: 6. ESRD/HD 7. Hx of leukemia: chemotherapy 3 yrs ago, in remission 8. Dementia/deconditioning/frailty 9. Orthostasis? vs hypotension induced by dialysis on midodrine on med list 10. Hypothyroidism: DNR Problems: Final Diagnosis CONSULTS card renal Brief Hospital Course Ms. Rodriguez, is a 81 year old female admit w NEW left-sided chest pain and lower extremity pain and numbness when HD started. She said she has been sitting for HD for 3 hours. The chest pain is gone post HD, which is likely related to HD, and some muscular pain. CE neg. Pt has a severe chf with ef 25%. SHe is DNR, she refused MPI OR CATH intervention. dc home today if ok with card dc time 35min. General: Alert, Oriented X3, Cooperative, No acute distress, Other (cannot recall her meds, ) HEENT: Atraumatic, PERRLA Lungs: Clear to auscultation,. left upper chest wall mild tenderness Abdomen: Normal bowel sounds, Soft Extremities: No clubbing, No edema, Normal pulses Skin: No rashes, No significant lesion Neuro: Normal gait, Normal speech, Normal tone, Sensation intact, Reflexes 2+, Other (weak) Psych/Mental Status: Mood NL Patient History: Unknown Problems: Disposition home CONDITION AT DISCHARGE: Improved Diet cardiac, renal Scheduled Aspirin (Aspirin) 1 TAB PO DAILY (Reported) Carvedilol (Carvedilol) 1 TAB PO BID94 (Reported) Famotidine (Pepcid) 20 MG PO QODAY (Reported) Fluoxetine Hcl (Fluoxetine Hcl) Unknown Dose PO DAILY (Reported) Gabapentin (Gabapentin) 300 MG PO DAILY (Reported) Levothyroxine Sodium (Levothyroxine Sodium) 1 TAB PO DAILY (Reported) Simvastatin (Simvastatin) 1 TAB PO QHS (Reported) Miscellaneous Medications Midodrine Hcl (Midodrine Hcl) Unknown Dose PO (Reported) Follow Up pcp in 2 weeks DALLIN DE LUNA MD Oct 03, 2016 12:52
[2016-10-03] MEDS ORDERED: FAMOTIDINE 20 MG TABLET. PO SCH (13:00)
[2016-10-03] MEDS ORDERED: FLUoxetine HCL 10 MG CAPSULE PO SCH (13:00)
[2016-10-03] MEDS ORDERED: GABAPENTIN 300 MG CAPSULE. PO SCH (13:00)
[2016-10-03] MEDS ORDERED: ASPIRIN CHEWABLE 81 MG TABLET. PO SCH (13:00)
[2016-10-03] MEDS ORDERED: LEVOTHYROXINE 25 MCG TABLET. PO SCH (13:00)
[2016-10-03] MEDS ORDERED: CARVEDILOL 3.125 MG TABLET. PO SCH (16:00)
[2016-10-03] MEDS ORDERED: SIMVASTATIN 10 MG TABLET PO SCH (21:00)
== END 2016-10-03 14:30 | disposition home or self-care (01) | DRG 291 ==
LOC: ER 18:21 → 2 SOUTH 20:49
PROVIDERS: ADMIT Internal Medicine; ATTEND Internal Medicine
DX: I13.2 Hypertensive heart and chronic kidney disease with heart failure and with stage 5 chronic kidney disease, or end stage renal disease (principal); N18.6 End stage renal disease; I50.42 Chronic combined systolic (congestive) and diastolic (congestive) heart failure; E03.9 Hypothyroidism, unspecified; E78.00 Pure hypercholesterolemia, unspecified; E78.5 Hyperlipidemia, unspecified; F03.90 Unspecified dementia, unspecified severity, without behavioral disturbance, psychotic disturbance, mood disturbance, and anxiety; M79.1 Myalgia; D64.9 Anemia, unspecified; E21.3 Hyperparathyroidism, unspecified; M19.90 Unspecified osteoarthritis, unspecified site; M54.5 Low back pain; I42.9 Cardiomyopathy, unspecified; J44.9 Chronic obstructive pulmonary disease, unspecified; M81.0 Age-related osteoporosis without current pathological fracture; Z66 Do not resuscitate; Z82.49 Family history of ischemic heart disease and other diseases of the circulatory system; Z85.6 Personal history of leukemia; Z92.21 Personal history of antineoplastic chemotherapy; Z99.2 Dependence on renal dialysis; Z90.710 Acquired absence of both cervix and uterus; Z90.49 Acquired absence of other specified parts of digestive tract
CPT/HCPCS: 36415; 71010; 80048; 80053; 80061; 82553; 83605; 83735; 83880; 84443; 84484; 85027; 87040; 87804; 93005; 99285-25

== ENCOUNTER 2017-07-18 09:43 | Emergency (ER) | payer MEDICARE, BC ==
[2017-07-18 10:44] LABS: ADD MAN DIFF? NO
[2017-07-18 10:54] LABS: BASO % 1 % (0-3); EOS % 0 % (0-3); HEMATOCRIT 44.8 % (36.0-47.0); HEMOGLOBIN 14.4 g/dL (12.0-15.5); LYMPH # 0.6 x10^3/uL (1.0-4.8); LYMPH % 7 % (24-48); MEAN CORPUSCULAR HEMOGLOBIN 31 pg (25-35); MEAN CORPUSCULAR HGB CONC 32 g/dL (31-37); MEAN CORPUSCULAR VOLUME 96 fL (79-100); MONO # 0.7 x10^3/uL (0.0-1.1); MONO % 8 % (0-9); NEUT # 7.2 x10^3uL (1.8-7.7); NEUT % 85 % (31-73); PLATELET COUNT 215 x10^3/uL (140-400); RED BLOOD COUNT 4.67 x10^6/uL (3.50-5.40); RED CELL DISTRIBUTION WIDTH 15.8 % (11.5-14.5); WHITE BLOOD COUNT 8.5 x10^3/uL (4.0-11.0)
[2017-07-18 10:55] LABS: ANION GAP 13 (6-14); BLOOD UREA NITROGEN 29 mg/dL (7-20); BUN/CREATININE RATIO 12 (6-20); CALCIUM 9.3 mg/dL (8.5-10.1); CARBON DIOXIDE 26 mmol/L (21-32); CHLORIDE 101 mmol/L (98-107); CREATININE 2.5 mg/dL (0.6-1.0); GFR 18.4; GLUCOSE 135 mg/dL (70-99); POTASSIUM 4.1 mmol/L (3.5-5.1); SODIUM 140 mmol/L (136-145)
[2017-07-18 11:00] LABS: ALBUMIN 3.4 g/dL (3.4-5.0); ALBUMIN/GLOBULIN RATIO 0.9 (1.0-1.7); ALK PHOS 127 U/L (46-116); ALT (SGPT) 8 U/L (14-59); AST (SGOT) 15 U/L (15-37); TOTAL BILIRUBIN 1.2 mg/dL (0.2-1.0)
[2017-07-18 11:21] LABS: BILIRUBIN,URINE LARGE (NEG); CLARITY,URINE CLEAR; COLOR,URINE AMBER; GLUCOSE,URINE NEGATIVE (NEG); NITRITE,URINE NEGATIVE (NEG); PH,URINE 5.5; PROTEIN,URINE 30 mg/dL (NEG-TRACE)
[2017-07-18 11:31] LABS: INR 1.2 (0.8-1.1)
[2017-07-18 11:32] LABS: PARTIAL THROMBOPLASTIN TIME 25 SEC (24-38)
[2017-07-18 11:42] LABS: BACTERIA,URINE 0 /HPF (0-FEW); HYALINE CASTS, URINE FEW /HPF; RBC,URINE OCC /HPF (0-2); SQUAMOUS EPITHELIAL CELL,UR FEW /LPF; WBC,URINE 0 /HPF (0-4)
== END 2017-07-18 13:00 | disposition home or self-care (01) ==
LOC: ER 09:43
DX: S22.31XA Fracture of one rib, right side, initial encounter for closed fracture (principal); S00.03XA Contusion of scalp, initial encounter; K21.9 Gastro-esophageal reflux disease without esophagitis; E78.00 Pure hypercholesterolemia, unspecified; E03.9 Hypothyroidism, unspecified; F03.90 Unspecified dementia, unspecified severity, without behavioral disturbance, psychotic disturbance, mood disturbance, and anxiety; I50.9 Heart failure, unspecified; W01.0XXA Fall on same level from slipping, tripping and stumbling without subsequent striking against object, initial encounter; Y93.89 Activity, other specified; Y99.8 Other external cause status; Y92.89 Other specified places as the place of occurrence of the external cause
CPT/HCPCS: 36415; 70450; 71045; 80053; 81001; 85025; 85610; 85730; 99285-25

== ENCOUNTER 2017-07-26 15:52 | Emergency (ER) | payer MEDICARE, BC | END 2017-07-26 16:43 | disposition left against medical advice (07) | LOC: ER 16:43 | DX: R06.02 Shortness of breath (principal); Z53.21 Procedure and treatment not carried out due to patient leaving prior to being seen by health care provider ==

== ENCOUNTER 2017-07-28 10:23 | Inpatient (IN) | payer MEDICARE, BC ==
[2017-07-28] MEDS: IV NORMAL SALINE 500ML BAG 500 ML IV ×2 (10:56→12:30)
[2017-07-28 11:18] LABS: BASO # 0.1 x10^3/uL (0.0-0.2); BASO % 0 % (0-3); EOS % 0 % (0-3); HEMATOCRIT 48.8 % (36.0-47.0); HEMOGLOBIN 15.5 g/dL (12.0-15.5); LYMPH # 0.2 x10^3/uL (1.0-4.8); LYMPH % 2 % (24-48); MEAN CORPUSCULAR HEMOGLOBIN 30 pg (25-35); MEAN CORPUSCULAR HGB CONC 32 g/dL (31-37); MEAN CORPUSCULAR VOLUME 95 fL (79-100); MONO # 1.3 x10^3/uL (0.0-1.1); MONO % 9 % (0-9); NEUT % 89 % (31-73); PLATELET COUNT 154 x10^3/uL (140-400); RED BLOOD COUNT 5.11 x10^6/uL (3.50-5.40); RED CELL DISTRIBUTION WIDTH 15.3 % (11.5-14.5); WHITE BLOOD COUNT 13.5 x10^3/uL (4.0-11.0)
[2017-07-28 11:20] LABS: ADD MAN DIFF? YES
[2017-07-28 11:24] LABS: BLOOD UREA NITROGEN 67 mg/dL (7-20); BUN/CREATININE RATIO 12 (6-20); CALCIUM 9.7 mg/dL (8.5-10.1); CREATININE 5.7 mg/dL (0.6-1.0); GFR 7.1; GLUCOSE 198 mg/dL (70-99)
[2017-07-28 11:25] LABS: ANION GAP 19 (6-14); CARBON DIOXIDE 20 mmol/L (21-32); CHLORIDE 101 mmol/L (98-107); SODIUM 140 mmol/L (136-145)
[2017-07-28 11:32] LABS: ALBUMIN 3.7 g/dL (3.4-5.0); ALBUMIN/GLOBULIN RATIO 1.1 (1.0-1.7); ALK PHOS 115 U/L (46-116); ALT (SGPT) 453 U/L (14-59); AST (SGOT) 784 U/L (15-37); TOTAL BILIRUBIN 2.3 mg/dL (0.2-1.0); TOTAL PROTEIN 7.1 g/dL (6.4-8.2)
[2017-07-28 12:53] LABS: % BANDS 2 % (0-9); % LYMPHS 2 % (24-48); % MONOS 5 % (0-10); % SEGS 91 % (35-66); ANISOCYTOSIS SLIGHT; PLT ESTIMATE ADEQUATE (ADEQUATE); POLYCHROMASIA SLIGHT
[2017-07-28 13:47] LABS: BILIRUBIN,URINE LARGE (NEG); CLARITY,URINE CLEAR; COLOR,URINE ORANGE; GLUCOSE,URINE NEGATIVE (NEG); NITRITE,URINE NEGATIVE (NEG); PROTEIN,URINE NEGATIVE (NEG-TRACE)
[2017-07-28 13:55] LABS: BACTERIA,URINE 0 /HPF (0-FEW); HYALINE CASTS, URINE MODERATE /HPF
[2017-07-28] MEDS: CEFEPIME HCL IV Push 2 GM VIAL. IVP (15:36)
[2017-07-28] MEDS ORDERED: IV NORMAL SALINE 1000ML BAG 1,000 ML IV ×2 (15:37)
[2017-07-28] MEDS ORDERED: DIALYSIS PATIENT. MC (15:45)
[2017-07-28] MEDS ORDERED: cloNIDine HCL 0.1 MG TABLET PO (15:45)
[2017-07-28] MEDS ORDERED: ACETAMINOPHEN 500 MG TABLET PO (15:45)
[2017-07-28] MEDS ORDERED: ALBUMIN HUMAN 25% 200 ML IV (15:45)
[2017-07-28] MEDS ORDERED: diphenhydrAMINE 50 MG/ML VIAL IV ×2 (15:45)
[2017-07-28] MEDS ORDERED: LABETALOL 20 MG/4 ML DISP.SYRIN. IVP (15:45)
[2017-07-28] MEDS: SIMVASTATIN 10 MG TABLET PO (21:20)
[2017-07-28] MEDS: HEPARIN PF for SUB-Q USE 5,000 UNIT/0.5 ML VIAL. SQ (21:22)
[2017-07-28] MEDS: cefTRIAXone IV Push 1 GM VIAL. IVP (21:30)
[2017-07-28] MEDS ORDERED: CEFEPIME HCL 2 GM in IV DEXTROSE 5% 100 ML IV (22:00)
[2017-07-29 04:28] LABS: ADD MAN DIFF? NO
[2017-07-29 04:42] LABS: BASO % 0 % (0-3); EOS % 0 % (0-3); HEMATOCRIT 45.5 % (36.0-47.0); LYMPH # 0.4 x10^3/uL (1.0-4.8); LYMPH % 4 % (24-48); MEAN CORPUSCULAR HEMOGLOBIN 31 pg (25-35); MEAN CORPUSCULAR HGB CONC 33 g/dL (31-37); MEAN CORPUSCULAR VOLUME 95 fL (79-100); MONO # 1.2 x10^3/uL (0.0-1.1); MONO % 10 % (0-9); NEUT # 9.7 x10^3uL (1.8-7.7); NEUT % 86 % (31-73); PLATELET COUNT 101 x10^3/uL (140-400); RED BLOOD COUNT 4.79 x10^6/uL (3.50-5.40); RED CELL DISTRIBUTION WIDTH 15.2 % (11.5-14.5); WHITE BLOOD COUNT 11.3 x10^3/uL (4.0-11.0)
[2017-07-29 05:03] LABS: ALBUMIN 3.2 g/dL (3.4-5.0); ALK PHOS 102 U/L (46-116); ALT (SGPT) 406 U/L (14-59); ANION GAP 11 (6-14); AST (SGOT) 475 U/L (15-37); BUN/CREATININE RATIO 9 (6-20); CALCIUM 8.9 mg/dL (8.5-10.1); CARBON DIOXIDE 32 mmol/L (21-32); CHLORIDE 100 mmol/L (98-107); CREATININE 2.9 mg/dL (0.6-1.0); GFR 15.5; GLUCOSE 101 mg/dL (70-99); SODIUM 143 mmol/L (136-145); TOTAL PROTEIN 6.3 g/dL (6.4-8.2)
[2017-07-29] MEDS: LEVOTHYROXINE 50 MCG TABLET PO (05:09)
[2017-07-29] MEDS: HEPARIN PF for SUB-Q USE 5,000 UNIT/0.5 ML VIAL. SQ ×3 (05:12→21:04)
[2017-07-29 05:15] LABS: BLOOD UREA NITROGEN 27 mg/dL (7-20)
[2017-07-29 07:28] LABS: HEP B SURFACE ABDY Non Reactive (.); HEP B SURFACE AG Negative (Negative)
[2017-07-29] MEDS: FLUoxetine HCL 10 MG CAPSULE PO (09:18)
[2017-07-29] MEDS: ASPIRIN CHEWABLE 81 MG TABLET. PO (09:20)
[2017-07-29] MEDS: CARVEDILOL 3.125 MG TABLET. PO ×2 (09:24→15:27)
[2017-07-29] MEDS: AMINO AC 3%/ELECTROLYTE/GLYCER 1,000 ML IV (13:58)
[2017-07-29] MEDS: CEFEPIME HCL IV Push 2 GM VIAL. IVP (14:54)
[2017-07-29 15:42] LABS: TROPONINI 0.266 ng/mL (0.000-0.055)
[2017-07-29 17:29] LABS: TROPONINI 0.257 ng/mL (0.000-0.055)
[2017-07-29] MEDS: SIMVASTATIN 10 MG TABLET PO (21:00)
[2017-07-29] MEDS: LACTOBACILLUS RHAMNOSUS GG 1 CAPSULE. PO (21:00)
[2017-07-30] MEDS: AMINO AC 3%/ELECTROLYTE/GLYCER 1,000 ML IV ×2 (02:33→14:04)
[2017-07-30] MEDS: LEVOTHYROXINE 50 MCG TABLET PO (06:04)
[2017-07-30] MEDS: HEPARIN PF for SUB-Q USE 5,000 UNIT/0.5 ML VIAL. SQ ×3 (06:08→21:25)
[2017-07-30 08:35] LABS: HEMOGLOBIN 15.2 g/dL (12.0-15.5); MEAN CORPUSCULAR HEMOGLOBIN 31 pg (25-35); MEAN CORPUSCULAR HGB CONC 32 g/dL (31-37); MEAN CORPUSCULAR VOLUME 96 fL (79-100); PLATELET COUNT 95 x10^3/uL (140-400); RED BLOOD COUNT 4.91 x10^6/uL (3.50-5.40); RED CELL DISTRIBUTION WIDTH 15.2 % (11.5-14.5); WHITE BLOOD COUNT 11.5 x10^3/uL (4.0-11.0)
[2017-07-30 08:36] LABS: ANION GAP 12 (6-14); BLOOD UREA NITROGEN 55 mg/dL (7-20); CALCIUM 8.7 mg/dL (8.5-10.1); CARBON DIOXIDE 26 mmol/L (21-32); CHLORIDE 92 mmol/L (98-107); CREATININE 3.4 mg/dL (0.6-1.0); GFR 12.9; GLUCOSE 208 mg/dL (70-99); POTASSIUM 4.6 mmol/L (3.5-5.1); SODIUM 130 mmol/L (136-145)
[2017-07-30] MEDS: FLUoxetine HCL 10 MG CAPSULE PO (09:25)
[2017-07-30] MEDS: ASPIRIN CHEWABLE 81 MG TABLET. PO (09:26)
[2017-07-30] MEDS: CARVEDILOL 3.125 MG TABLET. PO ×2 (09:26→18:54)
[2017-07-30] MEDS: LACTOBACILLUS RHAMNOSUS GG 1 CAPSULE. PO ×2 (09:27→21:23)
[2017-07-30] MEDS ORDERED: LORazepam INTENSOL 2 MG/ML ORAL.CONC SL (11:30)
[2017-07-30] MEDS ORDERED: ONDANSETRON PF 4 MG/2 ML VIAL. IV (13:15)
[2017-07-30] MEDS: MORPHINE SULFATE 20 MG/ML CONC SOLUTION. SL (14:05)
[2017-07-30] MEDS: CEFEPIME HCL IV Push 2 GM VIAL. IVP (14:05)
[2017-07-30] MEDS: ONDANSETRON ODT 4 MG TAB.RAPDIS. PO (14:06)
[2017-07-30] MEDS: SIMVASTATIN 10 MG TABLET PO (21:23)
[2017-07-31] MEDS: AMINO AC 3%/ELECTROLYTE/GLYCER 1,000 ML IV (02:38)
[2017-07-31] MEDS: LEVOTHYROXINE 50 MCG TABLET PO (05:54)
[2017-07-31] MEDS: HEPARIN PF for SUB-Q USE 5,000 UNIT/0.5 ML VIAL. SQ (05:58)
[2017-07-31] MEDS: LACTOBACILLUS RHAMNOSUS GG 1 CAPSULE. PO (08:39)
[2017-07-31] MEDS: FLUoxetine HCL 10 MG CAPSULE PO (08:39)
[2017-07-31] MEDS: ASPIRIN CHEWABLE 81 MG TABLET. PO (08:39)
[2017-07-31] MEDS: CARVEDILOL 3.125 MG TABLET. PO (09:00)
[2017-07-31] MEDS: HEPARIN PF 500 UNIT/5 ML DISP.SYRIN. IV (11:00)
[2017-07-31] MEDS ORDERED: CEFEPIME HCL 2 GM in IV NORMAL SALINE 100ML 100 ML IV (15:00)
== END 2017-07-31 12:30 | disposition hospice, home (50) | DRG 871 ==
LOC: ER 10:23 → 5 NORTH 13:45
PROC: 5A1D70Z Performance of Urinary Filtration, Intermittent, Less than 6 Hours Per Day (ICD-10-PCS; principal; 2017-07-28)
DX: A41.9 Sepsis, unspecified organism (principal); N17.0 Acute kidney failure with tubular necrosis; G93.41 Metabolic encephalopathy; I13.2 Hypertensive heart and chronic kidney disease with heart failure and with stage 5 chronic kidney disease, or end stage renal disease; N18.6 End stage renal disease; N39.0 Urinary tract infection, site not specified; E86.0 Dehydration; I50.9 Heart failure, unspecified; R65.10 Systemic inflammatory response syndrome (SIRS) of non-infectious origin without acute organ dysfunction; F03.90 Unspecified dementia, unspecified severity, without behavioral disturbance, psychotic disturbance, mood disturbance, and anxiety; E03.9 Hypothyroidism, unspecified; F32.9 Major depressive disorder, single episode, unspecified; E21.3 Hyperparathyroidism, unspecified; J44.9 Chronic obstructive pulmonary disease, unspecified; K21.9 Gastro-esophageal reflux disease without esophagitis; Z66 Do not resuscitate; Z82.49 Family history of ischemic heart disease and other diseases of the circulatory system; Z90.710 Acquired absence of both cervix and uterus; Z91.15 Patient's noncompliance with renal dialysis; Z91.19 Patient's noncompliance with other medical treatment and regimen; Z99.2 Dependence on renal dialysis; Z90.49 Acquired absence of other specified parts of digestive tract
CPT/HCPCS: 36415; 80048; 80053; 81001; 84484; 85007; 85025; 85027; 86706; 87086; 87340; 93005; 96361; 96374; 99285-25; J0692; J7040; Q0162